=== PATIENT | female | born 1940 | race Asian ===

== ENCOUNTER 2022-01-25 14:24 | Outpatient (CLI) | payer OTHER | END 2022-01-25 18:59 | disposition home or self-care (01) | LOC: MRI 14:24 | PROVIDERS: ATTEND Internal Medicine | DX: M54.31 Sciatica, right side (principal) ==

== ENCOUNTER 2022-07-03 19:29 | Emergency (ER) | payer OTHER ==
[~2022-07-03] VITALS: Ht 157.5 cm; Wt 56.7 kg
[2022-07-03 19:45] VITALS: BP 190/63; TEMP 98
[2022-07-03 20:53] LABS: PLATELET COUNT 160 K/uL (152-353)
[2022-07-03 21:04] LABS: POTASSIUM 3.5 mmol/L (3.6-5.2)
[2022-07-03 21:05] LABS: PARTIAL THROMBOPLASTIN TIME 30.1 SECONDS (23.9-36.7)
== END 2022-07-04 03:20 | disposition home or self-care (01) ==
LOC: ED 19:29
PROVIDERS: Emergency Medicine
DX: R07.89 Other chest pain (principal); I10 Essential (primary) hypertension
CPT/HCPCS: 80053; 81002; 84443; 84484; 85027; 85379; 85610; 85730; 93005; 96372; 99283; J2270; J2405